=== PATIENT | male | born 1985 | race Caucasian/White ===

== ENCOUNTER 2020-03-14 01:18 | Emergency (ER) | payer OTHER ==
[2020-03-14] MEDS ORDERED: KETOROLAC TROMETHAMINE INJ/PF 30 MG/1 ML SDV IV ONE (02:04)
--- NOTE | 2020-03-14 02:52 | RADIOLOGY REPORT (SQ) ---
CLINICAL INDICATION: Left flank pain. . TECHNIQUE: Noncontrast spiral axial CT imaging was obtained of the abdomen and pelvis with multiplanar reconstructions. This exam was performed according to our departmental dose-optimization program, which includes automated exposure control, adjustment of the mA and/or kV according to patient size and/or use of iterative reconstruction techniques. COMPARISON: None available. CORRELATION: None. FINDINGS: Abdomen: The lung bases are grossly clear. The heart is of normal size. No evidence of pleural or pericardial fluid. The liver is of normal size contour and attenuation. The gallbladder is nondistended without inflammatory change. The pancreas is of grossly normal contour on this noncontrast examination. The spleen is unremarkable. The adrenals are unremarkable. The kidneys demonstrate punctate nonobstructing calculi of the right kidney. No obstructive uropathy on the right. There is mild to moderate left hydronephrosis and proximal hydroureter secondary to an obstructing calculus measuring 6 mm in the proximal third of the left ureter, series 3 image 53 and series 601 image 35. Beyond this, the ureter is of normal caliber. No bladder calculi are seen. There is no evidence of free air. No free fluid. No bulky adenopathy. Abdominal aorta is nonaneurysmal. Pelvis: The bowel is nonobstructed. The bowel is unopacified with oral contrast. Pelvic contents are unremarkable. The appendix is normal. Visualized bones are unremarkable. IMPRESSION: 6 mm obstructing calculus proximal third left ureter with resultant mild to moderate hydronephrosis and hydroureter. Mild surrounding inflammatory changes..
[2020-03-14 02:53] LABS: ABSOLUTE EOSINOPHILS # (AUTO) 0.1 10^3/uL (0.0-0.6); ABSOLUTE LYMPHOCYTES (AUTO) 0.8 10^3/uL (0.5-4.7); ABSOLUTE MONOCYTES (AUTO) 0.4 10^3/uL (0.1-1.4); ABSOLUTE NEUT (AUTO) 11.1 10^3/uL (1.7-8.2); BASOPHILS % (AUTO) 0.2 % (0-2); EOSINOPHILS % (AUTO) 0.5 % (0-6); HEMATOCRIT 41.1 % (37.9-51.0); LYMPHOCYTES % (AUTO) 6.2 % (13-45); MEAN CORPUSCULAR HEMOGLOBIN 30.4 pg (27.0-33.4); MEAN CORPUSCULAR VOLUME 90 fl (80-97); MONOCYTES % (AUTO) 3.1 % (3-13); PLATELET COUNT 228 10^3/uL (150-450); RED BLOOD COUNT 4.59 10^6/uL (4.35-5.55); RED CELL DISTRIBUTION WIDTH 13.8 % (11.5-14.0); TOTAL CELLS COUNTED % (AUTO) 100 %; WHITE BLOOD COUNT 12.3 10^3/uL (4.0-10.5)
[2020-03-14] MEDS ORDERED: MORPHINE SULFATE 10 MG/ML INJ IV ONE (03:30)
[2020-03-14 03:51] LABS: ALBUMIN 4.2 g/dL (3.5-5.0); ALKALINE PHOSPHATASE 72 U/L (38-126); ANION GAP 10 (5-19); ASPARTATE AMINO TRANSFERASE 29 U/L (17-59); BILIRUBIN,DIRECT 0.2 mg/dL (0.0-0.4); BILIRUBIN,TOTAL 0.4 mg/dL (0.2-1.3); BLOOD UREA NITROGEN 17 mg/dL (7-20); CALCIUM 9.3 mg/dL (8.4-10.2); CARBON DIOXIDE 24 mmol/L (22-30); CHLORIDE 108 mmol/L (98-107); GLUCOSE 127 mg/dL (75-110); POTASSIUM 4.2 mmol/L (3.6-5.0); TOTAL PROTEIN 6.5 g/dL (6.3-8.2)
[2020-03-14 03:55] LABS: APPEARANCE,URINE CLEAR; BILIRUBIN,URINE NEGATIVE (NEGATIVE); COLOR,URINE YELLOW; GLUCOSE, URINE 50 mg/dL (NEGATIVE); KETONES,URINE TRACE mg/dL (NEGATIVE); LEUKOCYTE ESTERASE,URINE NEGATIVE (NEGATIVE); NITRITE,URINE NEGATIVE (NEGATIVE); PROTEIN,URINE NEGATIVE (NEGATIVE); URINE SPECIFIC GRAVITY 1.019; UROBILINOGEN,URINE NEGATIVE mg/dL (<2.0)
[2020-03-14] MEDS ORDERED: HYDROMORPHONE HCL INJ/PF 2 MG/ML AMPULE IV ONE (04:07)
[2020-03-14] MEDS ORDERED: PANTOPRAZOLE SODIUM 40 MG VIAL IV ONE (04:26)
[2020-03-14] MEDS ORDERED: OXYCODONE-ACETAMINOPHEN 5-325 MG TABLET PO ONE (04:46)
--- NOTE | 2020-03-14 04:46 | ER Document Report ---
ED General - General Chief Complaint: Back Pain Stated Complaint: BACK PAIN Time Seen by Provider: 03/14/20 01:54 Primary Care Provider: TREASURE BANKS [Primary Care Provider] - Follow up as needed Mode of Arrival: Medic Information source: Patient Notes: Patient is a 34-year-old male comes emergency room complaining of left-sided back pain. Patient was sitting watching Netflix at home when he had sudden onset of left sided back pain that has doubled him over and became exceptionally nauseous. Is not been notified a position of comfort. Patient denies any abdominal pain at this time. Denies any known traumatic events and works as a machine maintenance servicer. Patient denies any history of kidney stones in the past. He is a smoker but no other medical problems. TRAVEL OUTSIDE OF THE [place] IN LAST 30 DAYS: No - HPI Onset: Just prior to arrival - Related Data Allergies/Adverse Reactions: No Known Allergies Allergy (Unverified 03/14/20 01:39) Home Medications: Meloxicam. Omeprazole Past Medical History - General Information source: Patient - Social History Smoking Status: Current Some Day Smoker Cigarette use (# per day): No Chew tobacco use (# tins/day): No Smoking Education Provided: No Frequency of alcohol use: Occasional Drug Abuse: None Lives with: Alone, Family Family History: Reviewed & Not Pertinent Review of Systems - Review of Systems Constitutional: No symptoms reported EENT: No symptoms reported Cardiovascular: No symptoms reported Respiratory: No symptoms reported Gastrointestinal: See HPI, Nausea Genitourinary: Flank pain Male Genitourinary: No symptoms reported Musculoskeletal: See HPI, Back pain Skin: No symptoms reported Hematologic/Lymphatic: No symptoms reported Neurological/Psychological: No symptoms reported -: Yes All other systems reviewed and negative Physical Exam - Vital signs Vitals: Temp Pulse Resp BP Pulse Ox 98 F 73 18 152/101 H 100 03/14/20 01:39 03/14/20 01:39 03/14/20 01:39 03/14/20 01:39 03/14/20 01:39 Interpretation: Hypertensive - Notes Notes: PHYSICAL EXAMINATION: GENERAL: Patient is a very uncomfortable appearing 34-year-old male who is no apparent distress but cannot find any position of comfort. HEAD: Atraumatic, normocephalic. EYES: Pupils equal round and reactive to light, extraocular movements intact, sclera anicteric, conjunctiva are normal. ENT: Nares patent, oropharynx clear without exudates. Moist mucous membranes. NECK: Normal range of motion, supple without lymphadenopathy LUNGS: Breath sounds clear to auscultation bilaterally and equal. No wheezes rales or rhonchi. HEART: Regular rate and rhythm without murmurs ABDOMEN: Examination patient's abdomen shows no tenderness to palpation in any quadrant. Patient has good bowel sounds present all 4 quads. No peritoneal signs noted. Musculoskeletal: Examination of patient's back shows he has left-sided flank p ain. This is to percussion. He does not have any central vertebral tenderness at all it is all lateral near kidney function area. NEUROLOGICAL:. Normal speech, normal gait. Normal sensory, motor exams PSYCH: Normal mood, normal affect. SKIN: Warm, Dry, normal turgor, no rashes or lesions noted. Course - Re-evaluation Re-evalutation: 03/14/20 05:41 Patient's pain was under control. I had earlier discussed the case with Dr. Wagoner and he had stated that his lungs were to get the patient's pain under control he could be discharged home. I did talk to Dr. Islas she to stated that patient should be able to pass a 6 mg stone on his own as well as we controlled the pain. Given that his urine does not show any sign of infection at this time we do not need to place patient on any antibiotics. At this time he is very comfortable with sending home with some Percocet Toradol and Flomax, Phenergan. I am giving the number to [facility] urology here in town he will contact her office this morning. He has been made aware that if he needs to return to ER for uncontrolled vomiting or pain that he can do so. - Vital Signs Vital signs: Temp Pulse Resp BP Pulse Ox 98 F 73 18 152/101 H 100 03/14/20 01:39 03/14/20 01:39 03/14/20 01:39 03/14/20 01:39 03/14/20 01:39 - Laboratory Result Diagrams: 03/14/20 02:34 03/14/20 02:34 Laboratory results interpreted by me: 03/14/20 03/14/20 03/14/20 02:34 02:34 03:37 WBC 12.3 H Lymph % (Auto) 6.2 L Absolute Neuts (auto) 11.1 H Seg Neutrophils % 90.0 H Chloride 108 H Glucose 127 H Urine Glucose (UA) 50 H Urine Ketones TRACE H Urine Blood MODERATE H Discharge - Discharge Clinical Impression: Ureterolithiasis Disposition: HOME, SELF-CARE Instructions: Kidney Stone ([facility]) Additional Instructions: Home and rest. Medications prescribed. Increase fluids take medication as prescribed. As we discussed our goal is not to get you 100% pain-free but to make the pain bearable. I am giving you some fairly heavy duty pain medication along with something to help dilate your ureter and something for nausea. Currently you do not need any antibiotics. Also give me the number to the urologic group that is here in town they do not come to the hospital but they do have a office here that you could contact them first thing in the morning and go see them. You can also return to ER if the pain increases or you have uncontrolled vomiting or any other concerns at this time. Highly recommend making contact with the urology group even if you are feeling better since this is something that may come back and cause problems again. Prescriptions: Ketorolac Tromethamine [Toradol 10 mg Tablet] 10 mg PO Q6HP PRN #28 tablet PRN Reason: Tamsulosin HCl [Flomax] 0.4 mg PO DAILY #20 cap.er.24h Oxycodone HCl/Acetaminophen [Percocet 10-325 Mg Tablet] 1 each PO Q6 PRN #20 tablet PRN Reason: Referrals: [facility] [Primary [facility]] - Follow up as needed [facility] [Provider Group] - Follow up as needed
[2020-03-14] MEDS ORDERED: TAMSULOSIN HCL 0.4 MG CAP.SR.24H PO ONE (04:47)
[2020-03-14 06:34] VITALS: BP 135/97
== END 2020-03-14 06:45 | disposition home or self-care (01) ==
LOC: ER 01:18
DX: N13.2 Hydronephrosis with renal and ureteral calculous obstruction (principal); M54.9 Dorsalgia, unspecified; R11.0 Nausea; Z79.899 Other long term (current) drug therapy; Z79.1 Long term (current) use of non-steroidal anti-inflammatories (NSAID); F17.200 Nicotine dependence, unspecified, uncomplicated
CPT/HCPCS: 99285; 96374; 96375; 36415; 85025; 80053; 81001; 74176; J1885; J2270; J1170; C9113